=== PATIENT | male | born 1975 | race Caucasian/White ===

== ENCOUNTER 2016-11-15 01:44 | Emergency (ER) | payer OTHER ==
[~2016-11-15] VITALS: Ht 152.4 cm; Wt 109.1 kg
[2016-11-15 01:48] VITALS: BP 135/91; PULSE 79; RESP 20; O2SAT 94
--- NOTE | 2016-11-15 02:40 | ED.REPORT ---
HPI-Dyspnea / Wheezing Date of Service Nov 15, 2016 ED Provider: Josh Perkins MD This is a 41 year old male with a history of asthma and DM presenting to the ED complaining of cough that began 3 daysa go. Associated symptoms include chest congestion, headache, fever, and chills. Seen at urgent care yesterday, had a negative flu swab. Albuterol inhaler and nebulizer treatments at home have not provided symptom relief. Tylenol and ibuprofen has provided fever relief. Denies nausea, vomiting, abdominal pain, bowel or bladder changes at this time. Nursing Notes Stated Complaint: CHEST PAIN/COUGH Chief Complaint: Respiratory Complaints Nursing Notes Reviewed: Yes Allergies: Coded Allergies: No Known Allergies (Unverified Allergy, Unknown, 11/15/16) Scheduled Benzonatate (Benzonatate) 200 Mg Capsule 200 MG PO TID Scheduled PRN Hydrocodone-Acetaminophen 7.5-325/15 mL (Hydrocodone-Acetaminophen 7.5-325/15 mL ) 15 Ml Solution 15 ML PO HS PRN PRN For Cough General Time Seen by MD: 02:26 Chief Complaint Cough Hx Obtained From: Patient Arrived By: Walk-in Sudden in Onset?: Yes Onset Occurred: 3 days ago Symptom Duration: Since onset Severity: Current: Mild Pertinent Negative: Pt denies other symptoms Recent Healthcare: No recent hospitalization, Recent doctor visit Similar Sx Previous: No Past Medical History Past Medical History Reports: Asthma, Diabetes mellitus Past Surgical History denies Smoking History Never Smoker Social History Alcohol Use: "Social" Drug Use: Denies drug use Ambulatory Status Independent Review of Systems Constitutional: Reports: Chills, Fever Ears / Nose / Throat: Denies: Sore throat Respiratory: Reports: Non-productive cough, Shortness of breath Complete sys rev & neg: except as marked. GI: Denies: Abdominal pain, Nausea, Vomiting Male: Denies Dysuria Neurologic: Reports: Headache Physical Exam Initial Vital Signs Vital Signs (First) Date Time Temp Pulse Resp B/P Pulse Ox O2 Delivery O2 Flow Rate FiO2 11/15/16 01:48 36.6 79 20 135/91 94 Room Air Initial VS: Reviewed, Vital signs normal Head / Eyes: Atraumatic, Normocephalic, PERRL ENT: Mucous membranes moist, Conjunctiva normal, No scleral icterus Extremities: Vascular intact, Neuro intact, No swelling, No tenderness Skin: Warm, Dry, No cyanosis Neurologic: Alert, Oriented, Nonfocal Psychiatric: Mood/affect normal, Behavior normal, Normal thought content General/Constitutional: Awake, Alert Neck: Atraumatic, Supple, No meningismus, Full range of motion, No swelling, Non-tender, No masses Diminished Breath Sounds: Positive: Decreased L, Decreased R Wheezing / Retractions: Positive: Wheeze insp/exp diffuse Cardiovascular: Heart rate NL, Regular rhythm, Heart sounds NL, Peripheral circulation NL Interpretation & Diagnostics Lab Results Interpretation Test 11/15/16 02:44 11/15/16 03:16 Urine Color Yellow (YELLOW) Urine Appearance Clear (CLEAR,HAZY) Urine pH 6.0 (5.0-8.0) Urine Specific [place] 1.010 (1.003-1.035) Urine Protein Negativemg/dL (NEG,TRACE) Urine Glucose (UA) Negativemg/dL (NEGATIVE) Urine Ketones Negativemg/dL (NEGATIVE) Urine Occult Blood Negative (NEGATIVE) Urine Nitrite Negative (NEGATIVE) Urine Bilirubin Negative (NEGATIVE) Urine Urobilinogen Normalmg/dL (NORMAL) Urine Leukocyte Esterase Negative (NEGATIVE) Urine RBC 0-2/hpf (0-2) Urine WBC 0-5/hpf (0-5) Urine Epithelial Cells Few/hpf (NONE-MOD) Urine Crystals None seen (NONE SEEN) Urine Bacteria Few/hpf (NONE-FEW) Urine Hyaline Casts None/lpf (NONE) Urine Granular Casts None seen (NONE SEEN) Urine Waxy Casts None seen (NONE SEEN) Urine Red Blood Cell Casts None seen (NONE SEEN) Urine White Blood Cell Casts None seen (NONE SEEN) Urine Mucus None seen (None Seen) Urine Trichomonas None seen (NONE SEEN) Urine Yeast None (NONE SEEN) Urinalysis Comment None Urine Culture Reflexed Not indicated D-Dimer < 0.5mg/L (<0.50) Lab Results Interpretation: D-dimer negative ECG Interpretation ECG Interpretation: NSR at a rate of 73 Abnormal r-wave progression Time: 04:01 Interpreted by: ED physician X-Ray Chest Interpretation Interpretation / Wet Read by: Wet read ED physician NL X-Ray Chest Findings: No acute disease Re-Eval/Medical Decision Med Decision/Clinical Course 41-year-old male who has debilitating cough preventing him from sleep. Chest x- ray is normal. D-dimer is negative. He got some relief of his cough with Lortab and Tessalon. He will be discharged home with short-term prescriptions for those and to follow up with his regular doctor. Re-Evaluation/Progress : Time of Eval: 04:51 Re-Evaluation/Progress Note: Discussed lab and imaging results and plan for d/c, all questions addressed. Counseled Regarding: Diagnosis, Lab results, Need for follow-up, When/why to return to ED Discharge & Departure Impression: Primary Impression: Acute bronchitis Bronchitis organism: other organism Qualified Code: J20.8 - Acute bronchitis due to other specified organisms Disposition: Home Discharge Condition All VS Reviewed: Yes Condition: Stable Patient Instructions: Acute Bronchitis (ED) Additional Instructions: You have acute viral bronchitis. No evidence of bacterial infection, pneumonia , blood clot or other serious illness. Hydrocodone/acetaminophen elixir (Lortab ) 3 teaspoons at bedtime as needed for cough, 120 mL prescription written. Benzonatate (Tessalon pearls) 200 mg by mouth 3 times a day when necessary cough , #20 prescription written. Follow-up as needed with your primary doctor. Referrals: Ottoniel Bauman MD (PCP) Scribe Attestation Portions of this note were transcribed by Ron Hickman. I, Dr. Perkins personally performed the history, physical exam and medical decision-making; I reviewed and confirmed the accuracy of the information in the transcribed note. Signed by: gerri Washington. 11/14/2016, 05:00. Josh Perkins MD Nov 15, 2016 02:40 RON HICKMAN Nov 15, 2016 02:48
[2016-11-15] MEDS ORDERED: 0.9% Sodium Chloride 1,000 ML IV ONE (02:44)
[2016-11-15] MEDS ORDERED: Albuterol-Ipratropium 3 mL Inhalation Solution NEB ONE (02:45)
[2016-11-15] MEDS ORDERED: Albuterol 2.5 mg/3 mL Inhalation Solution NEB ONE (02:45)
[2016-11-15] MEDS ORDERED: MethylprednisoLONE Sodium Succinate 62.5 mg/mL 2 mL Inj IVPUSH ONE (02:45)
[2016-11-15 03:35] VITALS: PULSE 113; RESP 20; O2SAT 93
[2016-11-15] MEDS ORDERED: HYDROcodone-APAP 7.5-325 mg/15 mL 15 mL Solution PO ONE (04:55)
[2016-11-15 05:13] LABS: APPEARANCE,URINE CLEAR (CLEAR,HAZY); COLOR,URINE YELLOW (YELLOW); OCCULT BLOOD,URINE NEGATIVE (NEGATIVE); UROBILINOGEN,URINE NORMAL (NORMAL)
[2016-11-15 06:38] VITALS: BP 108/74; PULSE 68; RESP 20; O2SAT 89
[2016-11-15] MEDS ORDERED: HYDR15SO8 PO (06:47)
[2016-11-15] MEDS ORDERED: BENZ200C44 PO (06:47)
[2016-11-15 06:52] VITALS: BP 108/74; PULSE 68; RESP 20; O2SAT 91
--- NOTE | 2016-11-15 08:53 | DRSVH ---
PROCEDURE: X-RAY CHEST, TWO VIEWS ([id number]) INDICATIONS: cough, decreased BS right side TECHNIQUE: 2 views of the chest were acquired. COMPARISON: [facility], [place], XR CHEST 2VW, 12/07/2015, 14:42. [facility], [place], CHEST 2VW, 11/24/2013, 18:05. FINDINGS: Surgical changes and devices: None. Lungs and pleura: No pleural effusions or pneumothorax. Lungs are clear. Mediastinum: Mediastinal contours are normal. Heart size is normal. Bones and chest wall: No suspicious bony abnormalities. Soft tissues appear unremarkable. IMPRESSION: No acute cardiopulmonary disease. Dictated by: Gregory Gregg M.D. on 11/15/2016 at 8:51 Approved by: Gregory Gregg M.D. on 11/15/2016 at 8:51
== END 2016-11-15 06:54 | disposition home or self-care (01) ==
LOC: SED 01:44
DX: J20.8 Acute bronchitis due to other specified organisms (principal); J45.909 Unspecified asthma, uncomplicated; E11.9 Type 2 diabetes mellitus without complications
CPT/HCPCS: 36415; 71020; 81000; 85379; 93005; 94664; 96361; 96374; 99285; J2930; J7030; J7613; J7620

== ENCOUNTER 2016-11-29 16:56 | Emergency (ER) | payer OTHER ==
[~2016-11-29] VITALS: Ht 167.6 cm; Wt 109.1 kg
[~2016-11-29 16:56] MED LIST: BENZ200C44 PO; HYDR15SO8 PO
[2016-11-29 17:03] VITALS: BP 121/82; PULSE 72; RESP 18; O2SAT 96
--- NOTE | 2016-11-29 17:09 | ED.REPORT ---
HPI-General Illness Date of Service Nov 29, 2016 ED Provider: Kris Dan MD Nursing Notes Stated Complaint: LEFT HAND LACERATION Chief Complaint: Laceration Allergies: Coded Allergies: No Known Allergies (Unverified Allergy, Unknown, 11/15/16) Scheduled Benzonatate (Benzonatate) 200 Mg Capsule 200 MG PO TID Scheduled PRN Hydrocodone-Acetaminophen 7.5-325/15 mL (Hydrocodone-Acetaminophen 7.5-325/15 mL ) 15 Ml Solution 15 ML PO HS PRN PRN For Cough General Time Seen by MD: 17:09 Past Medical History Past Medical History Reports: Asthma, Diabetes mellitus Past Surgical History denies Smoking History Never Smoker Social History Alcohol Use: "Social" Drug Use: Denies drug use Ambulatory Status Independent Physical Exam Vital Signs Vital Signs Date Time Temp Pulse Resp B/P Pulse Ox O2 Delivery O2 Flow Rate FiO2 11/29/16 17:03 36.2 72 18 121/82 96 Room Air Discharge & Departure Referrals: Ottoniel Bauman MD (PCP) Kris Dan MD Nov 29, 2016 17:09
--- NOTE | 2016-11-29 17:17 | ED.REPORT ---
HPI-Extremity Problem Upper Date of Service Nov 29, 2016 ED Provider: Brigido Espinoza MD Pt is a 41 y/o male w/ a hx of DM presenting to the ED due to left hand injury onset earlier today. The patient was sleepwalking this morning and walked into a cabinet which caused it to break into 3 large pieces. He also hit his head on the glass and is unsure if he lost consciousness (this injury caused him to wake up from his sleepwalk). He c/o associated mild headache. Pt denies numbness or weakness of the hand, vomiting, any other sites of injury. Nursing Notes Stated Complaint: LEFT HAND LACERATION Chief Complaint: Laceration Nursing Notes Reviewed: Yes Allergies: Coded Allergies: No Known Allergies (Unverified Allergy, Unknown, 11/15/16) Scheduled Benzonatate (Benzonatate) 200 Mg Capsule 200 MG PO TID Scheduled PRN Hydrocodone-Acetaminophen 7.5-325/15 mL (Hydrocodone-Acetaminophen 7.5-325/15 mL ) 15 Ml Solution 15 ML PO HS PRN PRN For Cough General Time Seen by MD: 17:09 Chief Complaint Hand Injury left Hx Obtained From: Patient Arrived By: Walk-in Onset Occurred: 5 - 8 hours ago Caused by: Accidental Location: : Hand left Quality: Painful Severity: Current: Mild Severity: Maximum: Mild Similar Sx Previous: No Past Medical History Past Medical History Reports: Asthma, Diabetes mellitus Past Surgical History denies Smoking History Never Smoker Social History Alcohol Use: "Social" Drug Use: Denies drug use Ambulatory Status Independent Review of Systems Musculoskeletal: Reports: Extremity pain Neurologic: Reports: Change LOC, Headache, Denies: Focal weakness, Numbness, Weakness Complete sys rev & neg: except as marked. Physical Exam Initial Vital Signs Vital Signs (First) Date Time Temp Pulse Resp B/P Pulse Ox O2 Delivery O2 Flow Rate FiO2 11/29/16 17:03 36.2 72 18 121/82 96 Room Air Initial VS: Reviewed, Vital signs normal Head / Eyes: Atraumatic, Normocephalic, PERRL ENT: Mucous membranes moist, Conjunctiva normal, No scleral icterus Neck: Supple, Non-tender, Full range of motion Respiratory: Breath sounds normal, Clear to auscultation, No respiratory distress Cardiovascular: Regular rate & rhythm, Heart sounds normal, Intact distal pulses Abdomen / GI: Soft, Non-tender Lower Extremities: Vascular intact, Neuro intact, No swelling, No tenderness Skin: Warm, Dry, No cyanosis Psychiatric: Mood/affect normal, Behavior normal, Normal thought content General/Constitutional: Awake, Alert, No acute distress, Well appearing, Cooperative, Not toxic appearing Appearance / Presentation: Positive: Obese Upper Extremity / MS: Full range of motion, No snuffbox tenderness, No erythema , No deformity, Neurologic intact, Vascular intact, No ligamentous injury, Tendon function NL, No compartment syndrome, No circumferential injury, No clubbing/cyanosis, No edema 2 cm laceration over left dorsal distal wrist. No evidence of blood vessel involvement or foreign body Interpretation & Diagnostics X-Ray Interpretation Xray Interpretation: IMPRESSION: 1. No fracture. No osseous lesion. If there are persistent symptoms or clinical suspicion for pathology, then repeat radiographs or advanced imaging (CT, MRI or bone scan) should be considered for further evaluation. 2. No radiodense foreign body. Dictated by: Luz Elena Hudson MD, PhD on 11/29/2016 at 18:02 Approved by: Luz Elena Hudson MD, PhD on 11/29/2016 at 18:03 Study Performed: 3 view X-Ray Ordered: Hand left Interpretation / Wet Read by: Interpret - Radiologist CT Head Interpretation IMPRESSION: No acute intracranial disease process. Dictated by: Luz Elena Hudson MD, PhD on 11/29/2016 at 18:27 Approved by: Luz Elena Hudson MD, PhD on 11/29/2016 at 18:29 Study: Head CT no contrast Interpretation / Wet Read by: Interpret - Radiologist Procedures Laceration Management Time: 18:51 Procedure Performed by: ED physician Consent / Setup / Site Prep: Consent from patient, Time-out performed, Hand hygiene observed, Stand sterile technique Location of Wound: See PEx Wound Length: 2 cm Local Anesthesia: Lidocaine 1% Digital Block: No Wound Preparation: Hibiclens - Chlorhexidine Debridement: None Irrigation: Copious Undermining / Margins: Flaps aligned Repair Skin: ___ O (4), Nylon # Sutures - Skin: 4 Closure Layers: 1 Suture Technique: Simple Post-Procedure / Complications: Antibiotic oint applied, Dressing applied, No complications, Condition improved, Tolerated procedure well, Patient stable Re-Eval/Medical Decision Med Decision/Clinical Course 41-year-old male presenting complaining of laceration left hand and head trauma with loss of consciousness earlier today. Patient was sleepwalking and woke up putting anterior cabinet. He reports he fell and questionable loss of consciousness with mild headache at this time. CT brain is indicated with no acute pathology found. Left hand laceration performed with 4 sutures placed. Left upper extremity neurovascularly intact pre-and post procedure. Tetanus given. Recommend return or follow up with primary doctor 7 days for suture removal. Consulted regarding suture care. Return precautions given regarding any neurovascular deficits, sign symptoms of infection or any other new or worsening symptoms. Re-Evaluation/Progress : Time of Eval: 18:50 Re-Evaluation/Progress Note: Pt rechecked. Procedure performed with no complications. Informed pt of plan for treatment. Pt understands and agrees with plan for treatment. F/U instructions and RTER warnings given. All questions addressed. Counseled Regarding: Diagnosis, Need for follow-up, When/why to return to ED Discharge & Departure Impression: Primary Impression: Laceration Additional Impression: Minor head injury Encounter type: initial encounter Qualified Code: S00.90XA - Unspecified superficial injury of unspecified part of head, initial encounter Disposition: Home Discharge Condition All VS Reviewed: Yes Condition: Stable Patient Instructions: Laceration (ED), Suture Care (ED) Additional Instructions: 4 stitches were placed to repair your laceration today. Go to your primary care doctor or Urgent Care in 7 days to have the sutures removed. Do not submerge your hand in water, it is OK to lightly rinse it. See the suture care instructions. Return to the emergency department if you develop signs of infection: redness, worsening pain, warmth, fever, or for other concerning symptoms. Your tetanus vaccine was updated. Referrals: Ottoniel Bauman MD (PCP) Scribe Attestation Portions of this note were transcribed by Sammy Rebollar. I, Dr. Espinoza personally performed the history, physical exam and medical decision-making; I reviewed and confirmed the accuracy of the information in the transcribed note. Signed by Morena Alexander, 11/29/16 - 1800 copies to: Ottoniel Bauman MD, Ben M MD Nov 29, 2016 17:17 SAMMY REBOLLAR Nov 29, 2016 17:25
[2016-11-29] MEDS ORDERED: Lidocaine 1% 50 mL Inj NERVEBLOCK ONE (17:50)
--- NOTE | 2016-11-29 18:04 | DRSVH ---
PROCEDURE: X-RAY LEFT HAND, MINIMUM THREE VIEWS ([id number]) INDICATIONS: laceration glass rule out foreign body TECHNIQUE: 3 views of the hand(s) acquired. COMPARISON: None. FINDINGS: Bones: No fractures or dislocations. Carpal bones are normally aligned. No suspicious bony lesions . Soft tissues: No suspicious soft tissue calcifications. No radiodense foreign bodies identified. IMPRESSION: 1. No fracture. No osseous lesion. If there are persistent symptoms or clinical suspicion for pathol ogy, then repeat radiographs or advanced imaging (CT, MRI or bone scan) should be considered for furt her evaluation. 2. No radiodense foreign body. Dictated by: Luz Elena Hudson MD, PhD on 11/29/2016 at 18:02 Approved by: Luz Elena Hudson MD, PhD on 11/29/2016 at 18:03
--- NOTE | 2016-11-29 18:31 | DRSVH ---
PROCEDURE: CT BRAIN WITHOUT CONTRAST ([id number]) INDICATIONS: head trauma LOC TECHNIQUE: Noncontrast 4.5 mm thick angled axial sections acquired from the foramen magnum to the vertex, with c oronal reformats. COMPARISON: None. FINDINGS: Image quality: Excellent. CSF spaces: Basal cisterns are patent. No extra-axial fluid collections. Ventricles are normal in size and shape. Brain: No midline shift. No intracranial masses or hemorrhage. Urias-white matter interface is norm al. Skull and face: Calvarium and visualized facial bones are intact, without suspicious lesions. Sinuses: Retention cyst versus polyp is noted in the right maxillary sinus. The mastoids are clear. IMPRESSION: No acute intracranial disease process. Dictated by: Luz Elena Hudson MD, PhD on 11/29/2016 at 18:27 Approved by: Luz Elena Hudson MD, PhD on 11/29/2016 at 18:29
[2016-11-29] MEDS ORDERED: TdaP Vaccine 0.5 mL Inj IM ONE (19:00)
== END 2016-11-29 19:18 | disposition home or self-care (01) ==
LOC: SED 16:56
DX: S61.412A Laceration without foreign body of left hand, initial encounter (principal); S06.9X9A Unspecified intracranial injury with loss of consciousness of unspecified duration, initial encounter; W22.03XA Walked into furniture, initial encounter; Y92.9 Unspecified place or not applicable; Y93.84 Activity, sleeping; Y99.8 Other external cause status; J45.909 Unspecified asthma, uncomplicated; E11.9 Type 2 diabetes mellitus without complications; Z23 Encounter for immunization